=== PATIENT | male | born 1960 | race Caucasian/White ===

== ENCOUNTER 2016-02-20 12:32 | Emergency (ER) | payer OTHER ==
[~2016-02-20] VITALS: Ht 177.8 cm; Wt 111.0 kg
[~2016-02-20 12:32] MED LIST: ASPIRIN E.C.81 M1 PO; Combivent IH; NOHOMEMEDS; ZITHROMAX Z-PA250 MG PO
[2016-02-20 13:21] LABS: ADD MIUA? NO; BILIRUBIN NEGATIVE; BLOOD NEGATIVE; COLOR YELLOW ((YELLOW)); GLUCOSE (STRIP) NEGATIVE; KETONES NEGATIVE; LEUKOCYTES NEGATIVE; NITRITE NEGATIVE; PH, URINE 5.5 (5-8); PROTEIN (STRIP) NEGATIVE; SPECIFIC GRAVITY 1.028 (1.000-1.030); UCUL ADDED? NO; UROBILINOGEN 0.2 MG/DL (0.2-1.0)
[2016-02-20 13:31] LABS: MCV 88.5 FL (86-99); MEAN PLAT.VOLUME 9.6 uM^3 (9.0-12.4); PLATELET COUNT 278 K/uL (156-360); RBC DIS.WIDTH-CV 12.3 % (11.8-14.6); RBC DIS.WIDTH-SD 39.1 % (39-53); RED BLOOD COUNT 4.97 M/uL (4.00-5.50); WHITE BLOOD COUNT 6.7 K/uL (4.1-10.2)
[2016-02-20 13:33] LABS: CHLORIDE 105 mEq/L (99-109); POTASSIUM 4.1 mEq/L (3.7-5.4); SODIUM 137 mEq/L (136-147)
[2016-02-20 13:35] LABS: GLUCOSE 94 mg/dL (70-99)
[2016-02-20 13:36] LABS: ANION GAP 9 MEQ/L (2-14)
[2016-02-20 13:37] LABS: TOTAL BILIRUBIN 0.9 mg/dL (0.0-1.0)
[2016-02-20 13:39] LABS: ALKALINE PHOSPHATASE 71 IU/L (3-129); GFR ESTIMATE (CALCULATED) > 59 mL/min/
[2016-02-20 13:40] LABS: UREA NITROGEN (BUN) 17 mg/dL (9-23)
[2016-02-20 16:49] VITALS: BP 182/100
== END 2016-02-20 17:01 | disposition home or self-care (01) ==
LOC: EME 12:32
DX: K52.9 Noninfective gastroenteritis and colitis, unspecified (principal); R10.31 Right lower quadrant pain; Z87.442 Personal history of urinary calculi; Z79.82 Long term (current) use of aspirin
CPT/HCPCS: 74176; 80053; 81003; 85027; 99281; 99283